=== PATIENT | female | born 1965 ===

== ENCOUNTER 2017-06-16 08:27 | Emergency (ER) | payer OTHER, MEDICAID ==
[2017-06-16 08:33] VITALS: O2SAT 100
--- NOTE | 2017-06-16 09:38 | C.PDOC ---
History Of Present Illness This is a 52 year old female with no pmhx. She is presenting with c/o pain in her upper back, lower back, left arm, and left leg. She explains that yesterday she fell at work and landed on her back/hip. She did not seek any medical attention at this time because she did not have any pain. She went home last night at the pain started to set in then. She took Advil before going to bed and that did help with the pain. She woke up this morning and feels sore in the aforementioned areas and has come to the ED for further workup. She has not taken and analgesics this morning. She denies headache, chest pain, shortness of breath, nausea, vomiting, loss of bowel/bladder function. Time Seen by Provider: 06/16/17 09:07 Chief Complaint (Nursing): Back Pain Onset/Duration Of Symptoms: Sudden Onset Severity: Moderate Pain Scale Rating Of: 6 Previous Symptoms: Back Pain Associated Symptoms: None Exacerbating Factor(s): Sitting Past Medical History Vital Signs: Last Vital Signs Temp 97.4 F L 06/16/17 08:31 Pulse 68 06/16/17 08:31 Resp 18 06/16/17 08:31 BP 156/95 H 06/16/17 08:31 Pulse Ox 100 06/16/17 09:56 - Medical History PMH: No Chronic Diseases Surgical History: - Social History Hx Alcohol Use: No Hx Substance Use: No Review Of Systems Constitutional: Negative for: Fever, Chills, Weakness Eyes: Negative for: Vision Change Cardiovascular: Negative for: Chest Pain, Light Headedness Respiratory: Negative for: Shortness of Breath Gastrointestinal: Negative for: Nausea, Vomiting, Diarrhea, Constipation Genitourinary: Negative for: Dysuria, Incontinence Musculoskeletal: Positive for: Shoulder Pain (left), Arm Pain (left), Back Pain (thoracic and lumbar), Leg Pain (left) Neurological: Negative for: Weakness, Numbness Physical Exam - Physical Exam Appears: No Acute Distress Skin: Warm, Dry, No Ecchymosis Head: Atraumatic, Normacephalic Oral Mucosa: Moist Throat: Normal Chest: No Tenderness Cardiovascular: Rhythm Regular Respiratory: Normal Breath Sounds, No Rales, No Rhonchi, No Wheezing Gastrointestinal/Abdominal: Soft, No Tenderness Back: Paraspinal Tenderness, Straight Leg Raising (positive on the left) 1 - tenderness to palpation along the spine and paraspinal in the thoracic and lumbar spine. Pain is worst in the L-Spine. No gross deformity. No step off. Extremity: Tenderness (TTP on the LLE), No Pedal Edema, No Calf Tenderness DTR: Knee (R): 2+, Knee (L): 2+, Ankle (R): 2+, Ankle (L): 2+ Neurological/Psych: Oriented x3, Normal Speech, Normal Motor, Normal Sensation ED Course And Treatment O2 Sat by Pulse Oximetry: 100 Medical Decision Making Medical Decision Making: This patient has acute injury in setting of a fall yesterday. Radiographs were ordered and reviewed. The imaging showed Disposition Discussed With Dr.: Gordon Chávez Doctor Will See Patient In The: ED - Disposition Disposition: HOME/ ROUTINE Disposition Time: 10:30 Condition: FAIR Additional Instructions: This patient was seen and examined in ER fast track by myself and Dr. Chávez. Her physical exam is pertinent for tenderness to palpation along the L spine. Radiographs were ordered and reviewed which did not show any acute changes/ fractures of the L-Spine. She is discharged home with activity as tolerated. She was discharged with naproxen and tramadol to utilize sparingly for pain. Additionally she was asked to follow up with her PCP within one week. This case was discussed with Dr. Chávez. Forms: [facility] (Kiswahili) - Clinical Impression Clinical Impression: Low back pain - PA / COMMUNITY HEALTH DIRECTOR / Resident Statement MD/DO has examined the patient and agrees with the treatment plan.
[2017-06-16 10:33] VITALS: BP 127/84; PULSE 63; RESP 20; TEMP 97.3
--- NOTE | 2017-06-16 10:36 | C.PDOC ---
History Of Present Illness 52 year old female with no significant PMHx presents to the ED with complaints of pain in left lower back since yesterday. Patient states she fell at work and landed on her back and buttocks. She did not seek any medical attention at this time because she did not have any pain. She went home last night at the pain started to set in then. She took Advil before going to bed with relief. This morning she felt sore which prompted visit. She denies headache, chest pain, shortness of breath, nausea, vomiting, loss of bowel/bladder function. Time Seen by Provider: 06/16/17 09:07 Chief Complaint (Nursing): Back Pain History Per: Patient History/Exam Limitations: no limitations Onset/Duration Of Symptoms: Days (1 day ) Current Symptoms Are (Timing): Still Present Quality Of Discomfort: "Pain" Previous Symptoms: None Associated Symptoms: None Recent travel outside of the [place]: No Past Medical History Reviewed: Historical Data, Nursing Documentation, Vital Signs Vital Signs: Last Vital Signs Temp 97.3 F L 06/16/17 10:32 Pulse 63 06/16/17 10:32 Resp 20 06/16/17 10:32 BP 127/84 06/16/17 10:32 Pulse Ox 100 06/16/17 11:43 - Medical History PMH: No Chronic Diseases Surgical History: Family History: States: Unknown Family Hx - Social History Hx Alcohol Use: No Hx Substance Use: No Review Of Systems Constitutional: Negative for: Fever, Chills Cardiovascular: Negative for: Chest Pain, Palpitations Respiratory: Negative for: Cough, Shortness of Breath Gastrointestinal: Negative for: Nausea, Vomiting, Abdominal Pain, Diarrhea Genitourinary: Negative for: Dysuria, Incontinence Musculoskeletal: Positive for: Back Pain Physical Exam - Physical Exam Appears: Non-toxic, No Acute Distress Skin: Warm, Dry, No Rash Head: Atraumatic, Normacephalic, No Tenderness Eye(s): bilateral: Normal Inspection, PERRL, EOMI Oral Mucosa: Moist Neck: Supple Chest: Symmetrical, No Deformity Cardiovascular: Rhythm Regular, No Murmur Respiratory: No Rales, No Rhonchi, No Wheezing, Other (clear to auscultation bilaterally ) Gastrointestinal/Abdominal: Soft, No Tenderness, No Distention, No Guarding, No Rebound Back: Normal Inspection, No Vertebral Tenderness, No Decreased ROM, Paraspinal Tenderness (left paralumbar tenderness and left buttocks), No Other (no ecchymosis) Extremity: Normal ROM, No Tenderness Neurological/Psych: Oriented x3, Normal Speech ED Course And Treatment O2 Sat by Pulse Oximetry: 100 (RA) Pulse Ox Interpretation: Normal - Other Rad Lumbar Spine X-Ray X-Ray: Viewed By Me, Read By Radiologist Interpretation: FINDINGS: BONES: Normal alignment. No listhesis. T12 and L1 prominent superior endplate concave margins on lateral views are suggested less apparent on the frontal view. The L2 vertebral body height on the frontal view appears less than that suggested on the lateral view. Prominent Schmorl's node indentations can simulate this. No retropulsed ossific fragments into the spinal canal suggested. The decreased height of the T12 vertebral body on the lateral view is less apparent on the frontal view. Findings are indeterminate- prominent Schmorl's node indentations and/or projectional effects are considerations. Mild compression deformities of unknown chronicity cannot be excluded. Spondylosis T12-L1, superior L4 super L5 vertebral body levels. DISC SPACES: Unremarkable. OTHER FINDINGS: None. IMPRESSION: No retropulsed ossific fragments. At minimum prominent Schmorl's node indentations are suggested with mild multifocal spondylosis. Mild compression deformities are not entirely excluded. These are believe less suggested however on the frontal view. The chronicity of these appearances not known. To assess for potential marrow edema, an MRI of the lumbar spine would be needed. Progress Note: Patient was given Motrin and Lumbar Spine X-Ray was normal. Reassessment Condition: Improved (Patient ambulatory without signs of discomfort and patient is stable for discharge. Recommend analgesics as needed) Disposition Counseled Patient/Family Regarding: Diagnosis, Need For Followup, Rx Given - Disposition Referrals: [facility] [Outside] Disposition: HOME/ ROUTINE Disposition Time: 10:30 Condition: GOOD Additional Instructions: This patient was seen and examined in ER fast track by myself and Dr. Chávez. Her physical exam is pertinent for tenderness to palpation along the L spine. Radiographs were ordered and reviewed which did not show any acute changes/ fractures of the L-Spine. She is discharged home with activity as tolerated. She was discharged with naproxen and tramadol to utilize sparingly for pain. Additionally she was asked to follow up with her PCP within one week. This case was discussed with Dr. Chávez. Prescriptions: Ibuprofen [Motrin] 600 mg PO Q8 #30 tab Instructions: Acute Low Back Pain (DC) Forms: [facility] (Faroese), Work Excuse Print Language: NEPALI - Clinical Impression Clinical Impression: Low back pain, Contusion of back - PA / CADMIUM BURNER / Resident Statement MD/DO has reviewed & agrees with the documentation as recorded. - Scribe Statement The provider has reviewed the documentation as recorded by the Scribe Faiza Aldana All medical record entries made by the Junior were at my direction and personally dictated by me. I have reviewed the chart and agree that the record accurately reflects my personal performance of the history, physical exam, medical decision making, and the department course for this patient. I have also personally directed, reviewed, and agree with the discharge instructions and disposition.
--- NOTE | 2017-06-16 11:19 | RAD ---
PROCEDURE: Radiographs of the Lumbar Spine. HISTORY: pain s.p fall COMPARISON: No prior. FINDINGS: BONES: Normal alignment. No listhesis. T12 and L1 prominent superior endplate concave margins on lateral views are suggested less apparent on the frontal view. The L2 vertebral body height on the frontal view appears less than that suggested on the lateral view. Prominent Schmorl's node indentations can simulate this. No retropulsed ossific fragments into the spinal canal suggested. The decreased height of the T12 vertebral body on the lateral view is less apparent on the frontal view. Findings are indeterminate- prominent Schmorl's node indentations and/or projectional effects are considerations. Mild compression deformities of unknown chronicity cannot be excluded Spondylosis T12-L1, superior L4 super L5 vertebral body levels. DISC SPACES: Unremarkable. OTHER FINDINGS: None. IMPRESSION: No retropulsed ossific fragments. At minimum prominent Schmorl's node indentations are suggested with mild multifocal spondylosis. Mild compression deformities are not entirely excluded. These are believe less suggested however on the frontal view. The chronicity of these appearances not known. To assess for potential marrow edema, an MRI of the lumbar spine would be needed.
== END 2017-06-16 11:00 | disposition home or self-care (01) ==
LOC: C.ER 08:27
DX: S30.0XXA Contusion of lower back and pelvis, initial encounter (principal); W01.0XXA Fall on same level from slipping, tripping and stumbling without subsequent striking against object, initial encounter; Y93.89 Activity, other specified; Y92.89 Other specified places as the place of occurrence of the external cause; Y99.8 Other external cause status